=== PATIENT | male | born 1990 | race Caucasian/White ===

== ENCOUNTER 2024-09-03 22:11 | Emergency (ER) | payer SELFPAY ==
[2024-09-03 22:12] VITALS: BP 103/70; PULSE 86; RESP 19; TEMP 36.9; O2SAT 100; BMI 26.6
--- NOTE | 2024-09-03 22:54 | EDS_ITS ---
HPI History of Present Illness Chief Complaint: Laceration Informant: patient and spouse/S.O. Narrative Narrative: [id number] male circular saw injury left 3rd and 4th digits prior to arrival. Doing work at home. Tetanus in the last year. No anticoagulants. No other injuries. Tetanus Immunization: <5 years [facility] Home Medications ?Medication ?Instructions ?Recorded ?Last Taken ?Type NK 09/03/24 Unknown History Allergy/AdvReac Type Severity Reaction Status Date / Time No Known Allergies Allergy Verified 09/03/24 23:08 Social History Smoking Status: Never smoker ROS ROS ED Constitutional Constitutional ED: Denies chills, fever(s) or sweats ENT ENT ED: Denies sore throat Cardiovascular Cardiovascular: Denies chest pain, leg edema, palpitations or racing heartbeat Respiratory/Chest Respiratory/Chest: Denies cough, dyspnea or dyspnea on exertion Gastrointestinal Gastrointestinal: Denies abdominal pain, diarrhea, nausea or vomiting Genitourinary Genitourinary ED: Denies dysuria, hematuria or urinary frequency Musculoskeletal Musculoskeletal: Reports extremity pain; Denies back pain or neck pain Integumentary Reports wounds; Denies rash Neurologic Neurologic: Denies headache(s), paresthesias or weakness EXAM Physical Exam Const Vital Signs: 09/03/24 22:12 Temperature 98.4 F Temperature Source Oral Pulse Rate 86 Respiratory Rate 19 H Blood Pressure 103/70 Blood Pressure Mean 81 Pulse Ox 100 Oxygen Delivery Method Room Air Positive well nourished and well developed General Appearance ED: well developed and NAD HEENT Reports moist mucous membranes normocephalic and atraumatic Eyes General Eye ED: Yes normal appearance of both eyes Neck full ROM Chest Wall Chest: Negative for tenderness Resp normal respiratory effort and normal air movement Effort and Inspection: symmetric chest movement; Negative for respiratory distress Cardio regular rate, regular rhythm and no murmurs Peripheral Pulses: pulses 2+ throughout GI normal to inspection, nondistended, normoactive bowel sounds and non-tender Palpation: Negative for guarding or rebound tenderness present Extremity Extremity Narrative: Left hand: Ring finger 2 cm vertical laceration distal phalanx with no joint involvement bleeding controlled with pressure. Middle finger flap laceration jagged distal phalanx volar aspect with no joint involvement. No active bleeding. No nailbed involvement. General Extremety ED: Yes tenderness; Negative for edema General Extremity: Negative for edema Neuro oriented x3 and no sensory deficits noted Sensorium / Orientation: awake and alert Skin Skin Narrative: See above MDM MDM MDM Narrative Medical decision making narrative: Interventions / MDM: Differential diagnosis: Finger lacerations, tablesaw injury Diagnosis considered but do not suspect: Bony injury however x-ray negative. No clinical tendon injury. My EKG interpretation: N/A Imaging independently reviewed and interpreted by myself: Left hand x-ray 3 views: No bony involvement. External documents reviewed: N/A Test considered but not ordered:N/A ED course: Patient declines any pain medicines. Dressing for pressure. X-ray ordered. X-ray negative. Prep for laceration repair. Procedure note: Verbal consent. Normal sterile conditions. Show 1% lidocaine used for metacarpal blocks of both fingers of the middle and ring finger. Still had some pain around the wound of the distal digits additional local analgesia to the room air performed good analgesics. Copiously flushed wounds with total of 1 L sterile water. Turnicot was used for each finger initially started with the ring finger. Wound was closed using 3, 5-0 nylon simple interrupted sutures. Good approximation of the wound. Turnicot removed. Attention turned to the middle finger, turnicot was placed. Additional flushing of the wound. Noted more proximally 1.5 cm laceration jagged wounds more radial aspect. Initial total of two 5-0 nylon simple interrupted sutures placed to the wound more proximally, additional 1 suture placed to the distal flap of the wound. This opening more distally due to jagged wound injury. Mild debridement of the skin that was jagged was performed with iris scissors. Additional washing with sterile tap water. Bacitracin placed by myself dressing was placed. Patient tolerated the procedure well. Patient given follow-up with plastic hand as an outpatient. Discussed wound care with the patient. Sutures removed in 10 to 14 days. Re-evaluation: stable Disposition discussed with patient/family/significant other: Patient and spouse Case discussed with consulting clinician: N/A This note was generated with Followapation software. It may contain incorrect words, spelling, and punctuation that were not noted in checking the note before signing. Discharge Plan Triage Chief Complaint: Laceration ED Provider: Rodrigue Sal Dx/Rx/DC Orders Clinical Impression: Laceration of finger of left hand without foreign body with damage to nail, Finger injury Instructions: ED Laceration, Hand: All Closures Prescriptions: No Action NK Primary Care Provider: Care Physician,No Primary Referrals: Eliazar Rosenberg MD [Med Staff - Active Staff] - 10-14 Days suture removal Care Physician,No Primary [Primary Care Provider] - Activity Restrictions/Additional Instructions: X-ray negative. 3 sutures placed to your ring finger, 3 sutures placed to your middle finger. Wound care as discussed. Follow-up with healthcare provider 10 to 14 days. May follow-up with Dr. Jones plastic hand specialist also for evaluation outpatient and suture removal at that time. Print Language: Mongolian Disposition Disposition: Home, Self Care Discharge Date/Time: 09/04/24 00:31
--- NOTE | 2024-09-03 23:00 | RAD_ITS ---
PROCEDURE: HAND MIN 3 VIEWS 09/03/2024 REASON FOR EXAM: INJURY TECHNIQUE: 3 view(s) of the left hand COMPARISON: None FINDINGS: No acute fracture or dislocation. Joint spaces are maintained. Small lacerations and soft tissue swelling along the plantar aspect of the distal 3rd and 4th fingers. No radiopaque foreign body. RAD/Hand Min 3 Views IMPRESSION: No acute fracture or dislocation. Reading Location: [place]
[2024-09-04 00:30] VITALS: BP 109/77; PULSE 81; RESP 16; TEMP 36.7; O2SAT 100
[2024-09-04] MEDS: Lidocaine 1% (20 ml mdv) 20 ML Vial INFILT (00:32)
== END 2024-09-04 00:31 | disposition home or self-care (01) ==
PROVIDERS: Emergency Provider Emergency Medicine; Visit Provider Emergency Medicine
DX: S61.215A Laceration without foreign body of left ring finger without damage to nail, initial encounter (principal); S61.213A Laceration without foreign body of left middle finger without damage to nail, initial encounter; W26.8XXA Contact with other sharp object(s), not elsewhere classified, initial encounter
CPT/HCPCS: 12002; 73130; 99284